=== PATIENT | male | born 1975 | race African-American/Black ===

== ENCOUNTER 2017-08-04 09:21 | Emergency (ER) | payer SELFPAY ==
[~2017-08-04] VITALS: Ht 177.8 cm; Wt 82.0 kg
[~2017-08-04 09:21] MED LIST: ITRA100C PO; LISI2.5T3 PO; NICO2GUM68 TD; NYST100084 TOPICAL; OXYC1TAB63 PO
[2017-08-04 09:23] VITALS: BP 135/73; PULSE 79; RESP 14; TEMP 97.9; O2SAT 97
[2017-08-04] MEDS ORDERED: ROBA750T PO (09:36)
[2017-08-04] MEDS ORDERED: IBUP-232 PO (09:36)
--- NOTE | 2017-08-04 09:41 | PD ---
HPI Chief Complaint: Back/ Neck Pain or Injury Time Seen by Provider: 09:30 Travel History International Travel<30 days: No Contact w/Intl Traveler<30days: No Traveled to known affect area: No History of Present Illness HPI 42-year-old male presents to the emergency room for evaluation of right-sided mid back pain that started 2 days ago. Pain started while patient was swinging around a heavy, large bottle of alcohol. It is intermittent, sharp in nature and worse with certain range of motion. He denies shortness of breath, difficulty breathing, pain with breathing, chest pain. He took his friend's OxyContin without any relief in symptoms. States he has not taken anything else for pain. Denies any chronic medical conditions or daily medications. PFSH Past Medical History Anxiety: Yes Cancer: No Cardiovascular Problems: No Diabetes: No Endocrine: No Genitourinary: No Hepatitis: No Hiatal Hernia: No Immune Disorder: No Musculoskeletal: No Neurologic: No Psychiatric: Yes (ANXIETY) Reproductive: No Respiratory: Yes (ASTHMA) Thyroid Disease: No Past Surgical History AICD: No Joint Replacement: No Pacemaker: No Social History Alcohol Use: Yes Tobacco Use: Yes Substance Use: No Allergies-Medications (Allergen,Severity, Reaction): Coded Allergies: No Known Allergies (Verified Adverse Reaction, Unknown, 08/04/17) Reported Meds & Prescriptions Reported Meds & Active Scripts Active Ibuprofen 600 Mg Tab 600 Mg PO Q8H PRN Robaxin (Methocarbamol) 750 Mg Tab 750 Mg PO Q8HR Reported Lisinopril 2.5 Mg Tab 2.5 Mg PO DAILY Review of Systems Except as stated in HPI: all other systems reviewed are Neg Physical Exam Narrative GENERAL: Well-nourished, well-developed male in no acute distress. Afebrile. Ambulatory. SKIN: Focused skin assessment warm/dry. HEAD: Normocephalic. EYES: No scleral icterus. No injection or drainage. NECK: Supple, trachea midline. No JVD or lymphadenopathy. CARDIOVASCULAR: Regular rate and rhythm without murmurs, gallops, or rubs. RESPIRATORY: Breath sounds equal bilaterally. No accessory muscle use. BACK: No midline tenderness. No obvious deformity. No CVA tenderness. Mild relief of symptoms with deep palpation of the right mid back. Data Data Last Documented VS Vital Signs Date Time Temp Pulse Resp B/P (MAP) Pulse Ox O2 Delivery O2 Flow Rate FiO2 1/2/18 09:23 97.9 79 14 135/73 93 97 MDM Medical Decision Making Medical Screen Exam Complete: Yes Emergency Medical Condition: Yes Medical Record Reviewed: Yes Differential Diagnosis Spasm, strain, sprain Narrative Course 42-year-old male presents to the emergency room for evaluation of right mid back pain for the past 2 days. Pain started after he was swinging around a large, heavy bottle of alcohol. It is intermittent, sharp, stabbing. Worse with certain range of motion. Improves with massage. No associated chest pain or breathing difficulties. Vital signs stable. History and physical exam are consistent with muscle spasm/strain. Patient will be discharged with prescription for Robaxin and ibuprofen and told to follow-up with the PCP or return for worsening symptoms. He understands and agrees to plan. Diagnosis Primary Impression: Muscle spasm Referrals: Primary Care Physician Additional Instructions: Rest and drink plenty of fluids. Take Robaxin as directed, as needed for pain. Take ibuprofen with food as directed, as needed for pain. Apply ice to the affected area for 20 minutes at a time, as needed for pain and swelling. Follow-up with a primary care physician. Return to the emergency room for worsening symptoms. Scripts Ibuprofen (Ibuprofen) 600 Mg Tab 600 MG PO Q8H Y for PAIN, #21 TAB 0 Refills Prov: David Powers MD 08/04/17 Methocarbamol (Robaxin) 750 Mg Tab 750 MG PO Q8HR for Muscle Spasm, #15 TAB 0 Refills Prov: David Powers MD 08/04/17 Disposition: 01 DISCHARGE HOME Condition: Stable Vy Aleman Aug 04, 2017 09:41
== END 2017-08-04 09:47 | disposition home or self-care (01) ==
LOC: NEPK 09:21
DX: M62.838 Other muscle spasm (principal)
CPT/HCPCS: 99283

== ENCOUNTER 2017-10-24 11:57 | Emergency (ER) | payer SELFPAY ==
[~2017-10-24] VITALS: Ht 177.8 cm; Wt 82.5 kg
[~2017-10-24 11:57] MED LIST changes: +IBUP-232 PO; -ITRA100C PO; -NICO2GUM68 TD; -NYST100084 TOPICAL; -OXYC1TAB63 PO; +ROBA750T PO
[2017-10-24 12:04] VITALS: BP 121/77; PULSE 95; RESP 18; TEMP 98.3; O2SAT 97
--- NOTE | 2017-10-24 14:26 | PD ---
HPI Chief Complaint: Injury Time Seen by Provider: 14:26 Travel History International Travel<30 days: No Contact w/Intl Traveler<30days: No Traveled to known affect area: No History of Present Illness HPI 42-year-old male presents emergency department for evaluation of white cracked skin between his toes of both of his feet. It is itching. At times it loses. Denies any other new exposures. He has tried [id number] antifungal creams with no success in treatment. He has no other symptoms to report. PFSH Past Medical History Hx Anticoagulant Therapy: No Anxiety: Yes Cancer: No Cardiovascular Problems: No Chemotherapy: No Cerebrovascular Accident: No Diabetes: No Endocrine: No Genitourinary: No Hepatitis: No Hiatal Hernia: No Immune Disorder: No Musculoskeletal: No Neurologic: No Psychiatric: Yes (ANXIETY) Reproductive: No Respiratory: No Thyroid Disease: No Past Surgical History AICD: No Joint Replacement: No Pacemaker: No Social History Alcohol Use: Yes Tobacco Use: Yes Substance Use: No Allergies-Medications (Allergen,Severity, Reaction): Coded Allergies: No Known Allergies (Verified Adverse Reaction, Unknown, 10/24/17) Reported Meds & Prescriptions Reported Meds & Active Scripts Active Clotrimazole-Betamethasone Topical (Betamethasone/Clotrimazole) 1-0.05% Cream 1 Applic TOPICAL BID Ibuprofen 600 Mg Tab 600 Mg PO Q8H PRN Robaxin (Methocarbamol) 750 Mg Tab 750 Mg PO Q8HR Reported Lisinopril 2.5 Mg Tab 2.5 Mg PO DAILY Review of Systems Except as stated in HPI: all other systems reviewed are Neg Physical Exam Narrative GENERAL: Well-nourished, well-developed male patient, ambulatory no acute distress. SKIN: Focused skin assessment warm/dry. No erythema or edema. In the weddings of the toes bilaterally there is a whitened color to the skin, slightly raised, cracked. There is some serous drainage from some of these areas. HEAD: Normocephalic. EYES: No scleral icterus. No injection or drainage. NECK: Supple, trachea midline. No JVD or lymphadenopathy. CARDIOVASCULAR: Regular rate and rhythm without murmurs, gallops, or rubs. RESPIRATORY: Breath sounds equal bilaterally. No accessory muscle use. MUSCULOSKELETAL: No cyanosis, or edema. BACK: Nontender without obvious deformity. No CVA tenderness. Data Data Last Documented VS Vital Signs Date Time Temp Pulse Resp B/P (MAP) Pulse Ox O2 Delivery O2 Flow Rate FiO2 10/24/17 15:06 Room Air 10/24/17 12:04 98.3 95 18 121/77 (92) 97 Orders Orders Ed Discharge Order (10/24/17 14:31) MDM Medical Decision Making Medical Screen Exam Complete: Yes Emergency Medical Condition: Yes Medical Record Reviewed: Yes Differential Diagnosis Athlete's foot versus contact dermatitis versus maceration versus cellulitis Narrative Course 42-year-old male presents emergency department for evaluation. Physical exam is consistent with athlete's foot. Patient be given a prescription for this. He is counseled on care. I encouraged follow-up with a experimental welder. He agrees to return immediately with any acute worsening symptoms. Diagnosis Primary Impression: Athlete's foot, right Additional Impression: Athlete's foot, left Referrals: [facility] Recovery Operator Primary Care Physician Patient Instructions: Athlete's Foot (ED), General Instructions Additional Instructions: Keep the area clean and dry Make sure you are wearing clean socks Make sure the shower is disinfected after use to avoid reinfection Return immediately with any acute worsening symptoms Med/Other Pt SpecificInfo: Prescription(s) given Scripts Clotrimazole-Betamethasone Topical (Clotrimazole-Betamethasone Topical) 1-0.05% Cream 1 APPLIC TOPICAL BID for Fungal Infection, #45 GM 0 Refills Prov: Marlen Mcgregor 10/24/17 Disposition: 01 DISCHARGE HOME Condition: Stable Marlen Mcgregor Oct 24, 2017 14:26
[2017-10-24] MEDS ORDERED: CLOTCRE TOPICAL (14:35)
== END 2017-10-24 15:21 | disposition home or self-care (01) ==
LOC: NEPD 11:57
DX: B35.3 Tinea pedis (principal); Z72.0 Tobacco use
CPT/HCPCS: 99283